=== PATIENT | female | born 1990 | race Caucasian/White ===

== ENCOUNTER 2019-03-28 00:09 | Emergency (ER) | payer MEDICAID ==
[~2019-03-28] VITALS: Ht 170.2 cm; Wt 63.6 kg
[2019-03-28 00:16] VITALS: BP 123/55
[2019-03-28 02:18] LABS: GLUCOSE,POINT OF CARE 108 MG/DL (70-110)
== END 2019-03-28 05:12 | disposition home or self-care (01) ==
LOC: EMS 00:13
DX: F10.129 Alcohol abuse with intoxication, unspecified (principal)